=== PATIENT | male | born 1980 | race Caucasian/White ===

== ENCOUNTER 2021-01-31 23:01 | Inpatient (IN) | payer OTHER, SELFPAY ==
[~2021-01-31] VITALS: Ht 190.5 cm; Wt 140.6 kg
[2021-01-31 23:01] VITALS: BP_SYST 134
[~2021-01-31 23:01] MED LIST: ASPI-1155 PO; ATEN-41 PO; DILT180C67 PO; GLU500 PO; OMEP20CA15 PO
[2021-01-31] MEDS ORDERED: ASPIRIN 81 MG TAB.CHEW PO ONE (23:30)
[2021-01-31 23:35] LABS: BASOPHILS # (AUTO) 0.1 K/uL (0.0-0.2); BASOPHILS % (AUTO) 0.9 % (0.0-2.0); EOSINOPHILS # (AUTO) 0.1 K/uL (0.0-0.4); EOSINOPHILS % (AUTO) 1.4 % (0.0-4.0); HEMATOCRIT 43.6 % (36-54); LYMPHOCYTES # (AUTO) 1.5 K/uL (1.0-5.5); LYMPHOCYTES % (AUTO) 15.9 % (20.5-51.5); MEAN CORPUSCULAR HEMOGLOBIN 29 pg (27-31); MEAN CORPUSCULAR HGB CONC 35 % (32-36); MEAN CORPUSCULAR VOLUME 85 fL (79.0-98.0); MONOCYTES # (AUTO) 0.7 K/uL (0.0-1.0); MONOCYTES % (AUTO) 7.4 % (1.7-9.3); NEUTROPHILS # (AUTO) 7.1 K/uL (1.8-7.7); NEUTROPHILS % (AUTO) 74.4 % (40.0-70.0); PLATELET COUNT (AUTO) 189 K/uL (130-430); RED BLOOD CELL COUNT(AUTO) 5.13 MIL/uL (4.2-6.2); WHITE BLOOD COUNT (AUTO) 9.6 K/uL (4.8-10.8)
[2021-01-31] MEDS ORDERED: PANTOPRAZOLE SODIUM 40 MG/VIAL (PROTONIX) IVP ONE (23:45)
[2021-01-31 23:50] LABS: CALCIUM 9.2 mg/dL (8.4-11.0); CREATININE 0.89 mg/dL (0.55-1.30); POTASSIUM 3.9 mmol/L (3.5-5.1)
[2021-01-31 23:54] LABS: INR 0.9 (0.80-1.20); PROTHROMBIN TIME 9.6 SECS (9.5-12.5)
[2021-02-01 00:08] LABS: ALBUMIN 4.1 g/dL (3.4-4.8); TOTAL BILIRUBIN 0.4 mg/dL (0.0-1.0)
[2021-02-01] MEDS ORDERED: ONDANSETRON HCL 4 MG/2 ML VIAL ONE ×2 (00:08→02:35)
[2021-02-01] MEDS ORDERED: ONDANSETRON HCL 4 MG/2 ML VIAL IVP ONE ×2 (00:15→02:30)
[2021-02-01] MEDS ORDERED: MORPHINE 4 MG INJ. 4 MG/ML VIAL IVP ONE (00:30)
[2021-02-01] MEDS ORDERED: GLIP10TA21 PO (01:54)
[2021-02-01] MEDS ORDERED: ESCI10TA PO (01:54)
[2021-02-01] MEDS ORDERED: ONDANSETRON HCL 4 MG/2 ML VIAL IVP PRN (03:00)
[2021-02-01] MEDS ORDERED: NITROGLYCERIN 0.4 MG TAB.SUBL SL PRN (03:00)
[2021-02-01 04:14] VITALS: BP_SYST 143
[2021-02-01 04:30] VITALS: BP_SYST 143
[2021-02-01] MEDS: HYDROmorphone 1 INJ. 1 MG/ML CARTRIDGE IVP PRN ×4 (04:35→20:42)
[2021-02-01] MEDS: INSULIN REGULAR, HUMAN 100 UNITS/ML, 10 ML VIAL (humuLIN R) SUBCUT SCH ×4 (07:00→21:00)
[2021-02-01 08:55] LABS: AMYLASE 30 U/L (0-100); LIPASE 68 U/L (73-393)
[2021-02-01] MEDS ORDERED: ATENOLOL 25 MG TABLET(TENORMIN) PO SCH (09:00)
[2021-02-01] MEDS ORDERED: PANTOPRAZOLE SODIUM 40 MG TAB PO SCH (09:00)
[2021-02-01] MEDS ORDERED: PIPERACILLIN/TAZO 3.375/DEX-IS 50 ML IV SCH (09:00)
[2021-02-01] MEDS ORDERED: DILTIAZEM HCL 180 MG CAP.SR.24H PO ONE (09:00)
[2021-02-01 11:36] VITALS: BP_SYST 139
[2021-02-01] MEDS ORDERED: KCL 20 mEq in 0.45% NS 1000 mL 1,000 ML IV SCH (14:15)
[2021-02-01] MEDS ORDERED: ENOXAPARIN SODIUM 40 MG/0.4 ML SYRINGE SUBCUT ONE (14:30)
[2021-02-01] MEDS: PIPERACILLIN/TAZOBACTAM 3.375 GM/ D5W 50 ML IV SCH ×4 (16:22→18:00)
[2021-02-01 16:27] VITALS: BP_SYST 122
[2021-02-01 20:02] VITALS: BP_SYST 125
[2021-02-02] MEDS ORDERED: ENOXAPARIN SODIUM 40 MG/0.4 ML SYRINGE SUBCUT SCH (09:00)
[2021-02-02] MEDS ORDERED: DILTIAZEM HCL 180 MG CAP.SR.24H PO SCH (09:00)
== END 2021-02-01 22:15 | disposition short-term general hospital (02) | DRG 445 ==
LOC: SED 23:01 → STU 02-01 02:51
PROVIDERS: ADMIT Family Medicine; ATTEND Family Medicine
DX: K80.00 Calculus of gallbladder with acute cholecystitis without obstruction (principal); I48.20 Chronic atrial fibrillation, unspecified; F32.9 Major depressive disorder, single episode, unspecified; E11.9 Type 2 diabetes mellitus without complications; Z20.822 Contact with and (suspected) exposure to COVID-19; E66.01 Morbid (severe) obesity due to excess calories; R07.89 Other chest pain; I48.0 Paroxysmal atrial fibrillation; Z79.82 Long term (current) use of aspirin; Z79.84 Long term (current) use of oral hypoglycemic drugs; Z79.899 Other long term (current) drug therapy; Z87.891 Personal history of nicotine dependence; Z68.38 Body mass index [BMI] 38.0-38.9, adult
CPT/HCPCS: 36415; 71045; 76376; 76700-TC; 80053; 82150; 82550; 82962; 83690; 83880; 84484; 85025; 85379; 85610-TC; 93005; 96374; 96375; 99291; C9113; G0378; J1170; J1650; J1815; J2270; J2405; J2543; J3480; J7060